=== PATIENT | female | born 1955 | race Caucasian/White ===

== ENCOUNTER 2019-10-16 14:46 | Emergency (ER) | payer OTHER ==
[~2019-10-16] VITALS: Ht 165.1 cm; Wt 76.9 kg
[2019-10-16] MEDS ORDERED: METF-961 PO (15:00)
[2019-10-16] MEDS ORDERED: LOSA50TA37 PO (15:00)
[2019-10-16] MEDS ORDERED: IBUPROFEN 600 MG TABLET PO ONE (18:15)
[2019-10-16 19:53] VITALS: BP 142/78
== END 2019-10-16 19:45 | disposition home or self-care (01) ==
LOC: EMS 14:51
DX: S70.02XA Contusion of left hip, initial encounter (principal); S70.01XA Contusion of right hip, initial encounter; E11.9 Type 2 diabetes mellitus without complications; I10 Essential (primary) hypertension; W19.XXXA Unspecified fall, initial encounter; Y93.89 Activity, other specified; Y92.89 Other specified places as the place of occurrence of the external cause; Y99.8 Other external cause status
CPT/HCPCS: 73521